=== PATIENT | male | born 1995 | race Caucasian/White ===

== ENCOUNTER 2017-07-15 20:39 | Emergency (ER) | payer SELFPAY, OTHER ==
[2017-07-16] MEDS: DIPHTH/TET/ACEL PERTUSS (ADULT) 0.5 ML VIAL IM* (00:11)
[2017-07-16] MEDS: NEOMYC/POLYMYX/BACIT 0.9 GM OINT TOP (00:17)
== END 2017-07-16 00:40 | disposition home or self-care (01) ==
LOC: FTE 07-16 00:40
DX: S00.81XA Abrasion of other part of head, initial encounter (principal); S20.91XA Abrasion of unspecified parts of thorax, initial encounter; F17.210 Nicotine dependence, cigarettes, uncomplicated; Y04.8XXA Assault by other bodily force, initial encounter; Y92.524 Gas station as the place of occurrence of the external cause; Z23 Encounter for immunization
CPT/HCPCS: 90471; 90715; 99283-25